=== PATIENT | male | born 1940 | race Caucasian/White ===

== ENCOUNTER 2023-11-03 05:51 | Day surgery (SDC) | payer MEDICARE ==
[2023-11-02 10:08] LABS: BASOPHILS # (AUTO) 0.1 X10'3 (0-0.2); EOSINOPHILS % (AUTO) 0.9 % (0-6); HEMATOCRIT 43.3 % (42.0-52.0); HEMOGLOBIN 14.2 g/dl (14.0-17.9); LYMPHOCYTES # (AUTO) 1.1 X10'3 (1.1-4.8); LYMPHOCYTES % (AUTO) 21.2 % (21-51); MEAN CORPUSCULAR HEMOGLOBIN 31.5 PG (27.0-31.0); MEAN CORPUSCULAR HGB CONC 32.7 g/dL (33.0-36.5); MEAN CORPUSCULAR VOLUME 96.2 FL (78-98); MEAN PLATELET VOLUME 7.4 FL (7.4-10.4); MONOCYTES # (AUTO) 0.6 X10'3 (0-0.9); MONOCYTES % (AUTO) 11.1 % (2-12); NEUTROPHILS # (AUTO) 3.3 X10'3 (1.8-7.7); NEUTROPHILS % (AUTO) 64.8 % (42-75); PLATELET COUNT 165 X10'3 (140-440); RED CELL DISTRIBUTION WIDTH 13.9 % (11.5-14.5); WHITE BLOOD COUNT 5.1 X10'3 (4.5-11.0)
[2023-11-02 10:16] LABS: ALBUMIN 3.6 G/DL (3.4-5.0); ANION GAP 7 (8-16); BLOOD UREA NITROGEN 17 MG/DL (7-18); BUN/CREATININE RATIO 18.5 (10.0-20.0); CALCIUM 8.5 MG/DL (8.5-10.1); CHLORIDE 106 MMOL/L (99-107); CREATININE 0.92 MG/DL (0.60-1.10); GLUCOSE 98 MG/DL (70-104); POTASSIUM 4.3 MMOL/L (3.5-5.1); SODIUM 142 MMOL/L (135-145); TOTAL CARBON DIOXIDE 29.5 MMOL/L (24-32); eGFR 79 ML/MIN
[2023-11-02 10:18] LABS: APTT 27 SECONDS (22-32); PROTHROMBIN TIME 10.9 SECONDS (9.0-12.0)
[~2023-11-03] VITALS: Ht 165.1 cm; Wt 82.1 kg
[2023-11-03] VITALS (13 sets, daily range): BP systolic 130–180; BP diastolic 54–84; PULSE 56–73; RESP 12–19; TEMP 98.7; O2SAT 94–100
[~2023-11-03 05:51] MED LIST: CARI350T PO
[2023-11-03] MEDS ORDERED: OMEG1CAP20 PO (06:22)
[2023-11-03] MEDS ORDERED: LISI10TA27 PO (06:22)
[2023-11-03] MEDS ORDERED: RED600CA2 PO (06:22)
[2023-11-03] MEDS ORDERED: FLO0.4C PO (06:22)
[2023-11-03] MEDS: LORazepam 0.5 MG tablet PO PRN (07:04)
[2023-11-03] MEDS: normal saline 1,000 ML IV SCH (07:04)
[2023-11-03] MEDS: diphenhydrAMINE 25mg capsule PO PRN (07:04)
[2023-11-03] MEDS ORDERED: fentaNYL/PF 50MCG/1 ML 2ML syringe ONE (07:16)
[2023-11-03] MEDS ORDERED: verapamil 2.5 mg/ml inj IV ONE (07:16)
[2023-11-03] MEDS ORDERED: LIDOcaine 1% (10mg/ml) 2ml vial ONE (07:16)
[2023-11-03] MEDS ORDERED: midazolam 1 mg/ML 2ml injection ONE (07:16)
[2023-11-03] MEDS ORDERED: nitroGLYCERIN 500mcg/5mL D5W 5 ML IV ONE (07:17)
[2023-11-03] MEDS ORDERED: iohexol 350 MG/ML 50ML vial IV ONE ×2 (07:17→08:40)
[2023-11-03] MEDS ORDERED: heparin 1,000unit/ml 10ml vial 10 ML ONE (07:17)
[2023-11-03] MEDS ORDERED: iohexol 350MG/ML 100ml bottle IV ONE (07:17)
[2023-11-03] MEDS ORDERED: LIDOcaine 1% 30ml preserv. free vial ONE (08:52)
[2023-11-03] MEDS ORDERED: ROSU10TA72 PO (09:45)
[2023-11-03 11:25] LABS: ISTAT HGB ART 12.9 g/dl (14.0-17.9); ISTAT Hct ART 38 %PCV (42-52); ISTAT O2 SATURATION ARTERIAL 96 % (95-98); ISTAT SOURCE ART
== END 2023-11-03 14:50 | disposition home or self-care (01) ==
LOC: SSTAY O 05:51
PROVIDERS: ATTEND Internal Medicine Cardiovascular Disease
DX: I35.0 Nonrheumatic aortic (valve) stenosis (principal); R94.39 Abnormal result of other cardiovascular function study; I25.10 Atherosclerotic heart disease of native coronary artery without angina pectoris; I45.10 Unspecified right bundle-branch block; R94.31 Abnormal electrocardiogram [ECG] [EKG]; I10 Essential (primary) hypertension; E78.5 Hyperlipidemia, unspecified; G47.33 Obstructive sleep apnea (adult) (pediatric); M19.90 Unspecified osteoarthritis, unspecified site; Z79.899 Other long term (current) drug therapy; Z98.890 Other specified postprocedural states; Z88.1 Allergy status to other antibiotic agents; Z88.2 Allergy status to sulfonamides; Z88.8 Allergy status to other drugs, medicaments and biological substances; Z82.49 Family history of ischemic heart disease and other diseases of the circulatory system; Z82.5 Family history of asthma and other chronic lower respiratory diseases; Z80.9 Family history of malignant neoplasm, unspecified
CPT/HCPCS: 36415; 80048; 82803; 85014; 85025; 85610; 85730; 93005; 93460; 99152; 99153; A6258; A6402; C1725; C1751; C1769; C1894; J1644; J2001; J2250; J3010; J3490; J7030; Q0163; Q9967; Z7610; 76937

== ENCOUNTER 2023-11-20 13:59 | Emergency (ER) | payer MEDICARE ==
[~2023-11-20] VITALS: Ht 165.1 cm; Wt 81.8 kg
[~2023-11-20 13:59] MED LIST changes: -CARI350T PO; +FLO0.4C PO; +LISI10TA27 PO; +OMEG1CAP20 PO; +RED600CA2 PO; +ROSU10TA72 PO
[2023-11-20 14:42] VITALS: BP 147/84; PULSE 98; RESP 19; TEMP 97.1; O2SAT 99
[2023-11-20 14:45] LABS: BASOPHILS # (AUTO) 0.1 X10'3 (0-0.2); BASOPHILS % (AUTO) 1.4 % (0-1); EOSINOPHILS # (AUTO) 0.1 X10'3 (0-0.9); EOSINOPHILS % (AUTO) 1.2 % (0-6); HEMATOCRIT 40.3 % (42.0-52.0); HEMOGLOBIN 13.7 g/dl (14.0-17.9); LYMPHOCYTES # (AUTO) 1.2 X10'3 (1.1-4.8); LYMPHOCYTES % (AUTO) 14.8 % (21-51); MEAN CORPUSCULAR HGB CONC 33.9 g/dL (33.0-36.5); MEAN CORPUSCULAR VOLUME 94.4 FL (78-98); MEAN PLATELET VOLUME 7.3 FL (7.4-10.4); MONOCYTES # (AUTO) 0.6 X10'3 (0-0.9); NEUTROPHILS # (AUTO) 5.9 X10'3 (1.8-7.7); NEUTROPHILS % (AUTO) 74.6 % (42-75); PLATELET COUNT 160 X10'3 (140-440); RED BLOOD COUNT 4.27 X10'6 (4.70-6.10); RED CELL DISTRIBUTION WIDTH 13.4 % (11.5-14.5); WHITE BLOOD COUNT 7.9 X10'3 (4.5-11.0)
[2023-11-20 14:58] LABS: ALANINE AMINOTRANSFERASE 22 U/L (12-78); ALBUMIN 3.4 G/DL (3.4-5.0); ALBUMIN/GLOBULIN RATIO 0.8 (1.1-1.5); ALKALINE PHOSPHATASE 87 IU/L (46-116); ANION GAP 5 (8-16); ASPARTATE AMINO TRANSFERASE 19 U/L (10-37); BILIRUBIN,TOTAL 0.4 MG/DL (0.1-1.0); BLOOD UREA NITROGEN 20 MG/DL (7-18); BUN/CREATININE RATIO 18.2 (10.0-20.0); CHLORIDE 105 MMOL/L (99-107); GLUCOSE 142 MG/DL (70-104); POTASSIUM 4.3 MMOL/L (3.5-5.1); SODIUM 140 MMOL/L (135-145); TOTAL CARBON DIOXIDE 29.9 MMOL/L (24-32); TOTAL PROTEIN 7.5 G/DL (6.4-8.2); eCRCL 44 ML/MIN; eGFR 64 ML/MIN
[2023-11-20 15:04] LABS: PRO BRAIN NATRIURETIC PEPTIDE 133 PG/ML (0-450)
== END 2023-11-20 15:55 | disposition home or self-care (01) ==
LOC: ER 13:59
DX: R53.83 Other fatigue (principal); R07.89 Other chest pain; I10 Essential (primary) hypertension; Z88.1 Allergy status to other antibiotic agents; Z88.2 Allergy status to sulfonamides; Z88.8 Allergy status to other drugs, medicaments and biological substances; Z79.899 Other long term (current) drug therapy
CPT/HCPCS: 36415; 71045; 80053; 83880; 84484; 85025; 93005; 99285

== ENCOUNTER 2024-06-07 09:29 | Outpatient (CLI) | payer MEDICARE ==
[~2024-06-07 09:29] MED LIST changes: -FLO0.4C PO; +TAMS-55 PO
[2024-06-07 10:03] LABS: BASOPHILS # (AUTO) 0.1 X10'3 (0-0.2); EOSINOPHILS # (AUTO) 0.1 X10'3 (0-0.9); EOSINOPHILS % (AUTO) 1.7 % (0-6); HEMATOCRIT 41.4 % (42.0-52.0); HEMOGLOBIN 13.8 g/dl (14.0-17.9); LYMPHOCYTES # (AUTO) 1.3 X10'3 (1.1-4.8); LYMPHOCYTES % (AUTO) 25.9 % (21-51); MEAN CORPUSCULAR HEMOGLOBIN 31.1 PG (27.0-31.0); MEAN CORPUSCULAR HGB CONC 33.3 g/dL (33.0-36.5); MEAN CORPUSCULAR VOLUME 93.5 FL (78-98); MEAN PLATELET VOLUME 7.3 FL (7.4-10.4); MONOCYTES # (AUTO) 0.6 X10'3 (0-0.9); NEUTROPHILS % (AUTO) 58.4 % (42-75); PLATELET COUNT 151 X10'3 (140-440); RED BLOOD COUNT 4.43 X10'6 (4.70-6.10); RED CELL DISTRIBUTION WIDTH 13.7 % (11.5-14.5); WHITE BLOOD COUNT 5.1 X10'3 (4.5-11.0)
[2024-06-07 10:13] LABS: APTT 26 SECONDS (22-32); PROTHROMBIN TIME 10.3 SECONDS (9.0-12.0)
[2024-06-07 10:23] LABS: ALANINE AMINOTRANSFERASE 31 U/L (12-78); ALBUMIN 3.7 G/DL (3.4-5.0); ALBUMIN/GLOBULIN RATIO 0.9 (1.1-1.5); ALKALINE PHOSPHATASE 93 IU/L (46-116); ANION GAP 10 (8-16); ASPARTATE AMINO TRANSFERASE 20 U/L (10-37); BILIRUBIN,TOTAL 0.7 MG/DL (0.1-1.0); BLOOD UREA NITROGEN 22 MG/DL (7-18); BUN/CREATININE RATIO 23.2 (10.0-20.0); CALCIUM 9.1 MG/DL (8.5-10.1); CHLORIDE 107 MMOL/L (99-107); CREATININE 0.95 MG/DL (0.60-1.10); GLUCOSE 106 MG/DL (70-104); POTASSIUM 3.7 MMOL/L (3.5-5.1); PRO BRAIN NATRIURETIC PEPTIDE 148 PG/ML (0-450); SODIUM 144 MMOL/L (135-145); TOTAL CARBON DIOXIDE 27.1 MMOL/L (24-32); TOTAL PROTEIN 7.7 G/DL (6.4-8.2); eGFR 76 ML/MIN
[2024-06-07] MEDS ORDERED: IODIXANOL 320 MG/ML INFUS..BTL 100ML IV ONE (11:17)
== END 2024-06-07 23:59 | disposition home or self-care (01) ==
LOC: RAD 09:29
PROVIDERS: ATTEND Internal Medicine Cardiovascular Disease
DX: K57.30 Diverticulosis of large intestine without perforation or abscess without bleeding (principal); I35.0 Nonrheumatic aortic (valve) stenosis; R06.02 Shortness of breath; I65.29 Occlusion and stenosis of unspecified carotid artery; J98.11 Atelectasis; K76.89 Other specified diseases of liver; N40.0 Benign prostatic hyperplasia without lower urinary tract symptoms; I70.0 Atherosclerosis of aorta
CPT/HCPCS: 36415; 71046; 71275; 74174; 75572; 80053; 83880; 85025; 85610; 85730; 93880; Q9967

== ENCOUNTER 2024-06-27 10:10 | Outpatient (CLI) | payer MEDICARE ==
[~2024-06-27 10:10] MED LIST changes: +ASCO100031 PO; +ASPI81TA52 PO; +ATOR20TA PO; +CHOL200013 PO; +CLOP75TA34 PO; +LACT1CAP60 PO; +MULT-1085 PO; -ROSU10TA72 PO; +SELE200C3 PO; +TURM500T PO; +UBIQ100C2 PO
--- NOTE | 2024-06-29 18:07 | CARDIOLOGY REPORT ---
APPROVED REPORT EXAM: Limited 2D, Doppler, and color-flow Echocardiogram. Patient Location: OUT-PATIENT Blood Pressure: 168 / 56 mmHg Heart Rate: 66 bpm Rhythm: SINUS Indications POST PROCEDURE FOLLOW-UP TAVR 26mm Lopez Binh 3 Ultra RESILIA Bioprosthetic TAVR Accelerator Technician: MD Amado Previous echo 06/23/24 [facility] JT EF78%; AVA3.30 ; Peak v 2.62 ; Grad 28/11; TRIV PVL 11,1,5; NO PE; trTR; m/mMR LEFT VENTRICLE Normal LV size with mild concentric hypertrophy. Overall systolic function is normal. Previously repo rted LV gradient of 25mmHG to 41mmHG post-deployment has resolved. Gradient at rest: 6 mmHg. No saldana e with Valsalva maneuver Overall LVEF is 65%. RIGHT VENTRICLE RV is grossly normal size with adequate function. AORTIC VALVE 26 mm Lopez Binh 3 Ultra Resilia bioprosthetic TAVR appears well seated with normal function. Tri vial paravalvular leak present at 11, 1, 5 o'clock in TTE SAX BASE. MANUELA is measured at 3.35 cmsq. Pea k / mean gradients of 19 / 11 mmHG. Peak velocity is measured at 2.18 m/sec. MITRAL VALVE Mild MV annular calcification with thickened leaflets without stenosis. Mild regurgitation. TRICUSPID VALVE TV appears structurally normal with trace regurgitation. PERICARDIUM Normal pericardium. No effusion. Other Information Study Quality: Adequate Conclusion Overall LVEF is 65%. Normal LV size with mild concentric hypertrophy. Overall systolic function is normal. Previously rep orted LV gradient of 25mmHG to 41mmHG post-deployment has resolved. Gradient at rest: 6 mmHg. No c hange with Valsalva maneuver RV is grossly normal size with adequate function. 26 mm Lopez Binh 3 Ultra Resilia bioprosthetic TAVR appears well seated with normal function. Tr ivial paravalvular leak present at 11, 1, 5 o'clock in TTE SAX BASE. MANUELA is measured at 3.35 cmsq. Peak / mean gradients of 19 / 11 mmHG. Peak velocity is measured at 2.18 m/sec. Mild MV annular calcification with thickened leaflets without stenosis. Mild regurgitation. Normal pericardium. No effusion. n. TV appears structurally normal with trace regurgitation.
== END 2024-06-27 23:59 | disposition home or self-care (01) ==
LOC: CARD DIAG 10:10
PROVIDERS: ATTEND Internal Medicine Cardiovascular Disease
DX: Z48.812 Encounter for surgical aftercare following surgery on the circulatory system (principal); I34.0 Nonrheumatic mitral (valve) insufficiency; Z95.2 Presence of prosthetic heart valve; I51.7 Cardiomegaly
CPT/HCPCS: 93308